=== PATIENT | male | born 1990 ===

== ENCOUNTER 2022-03-08 07:05 | Day surgery (SDC) | payer OTHER ==
[~2022-03-08] VITALS: Ht 180.3 cm; Wt 113.9 kg
[~2022-03-08 07:05] MED LIST: PROAIR RESPICL90 MCG IH
[2022-03-08] MEDS ORDERED: COLACE100 MG PO (11:57)
[2022-03-08] MEDS ORDERED: ULTRACET PO (11:57)
== END 2022-03-08 16:35 | disposition home or self-care (01) ==
LOC: CIR.AMB 07:05
PROVIDERS: ATTEND Surgery
DX: K60.3 Anal fistula (principal); K62.89 Other specified diseases of anus and rectum; K62.5 Hemorrhage of anus and rectum; K52.9 Noninfective gastroenteritis and colitis, unspecified; Z91.013 Allergy to seafood; Z88.6 Allergy status to analgesic agent; Z20.822 Contact with and (suspected) exposure to COVID-19; Z88.0 Allergy status to penicillin; J45.909 Unspecified asthma, uncomplicated; E66.9 Obesity, unspecified